=== PATIENT | female | born 1995 | race American Indian/Alaskan Native ===

== ENCOUNTER 2019-01-08 07:58 | Day surgery (SDC) | payer MEDICAID ==
[~2019-01-08 07:58] MED LIST: BLOXIVERZ ONE; DECADRON ONE; DIPRIVAN 10 MG/ML IV ONE; MARCAINE 0.5% INFILTRATI ONE; QUELICIN ONE; ROBINUL ONE; SUBLIMAZE ONE; XYLOCAINE MPF 2% ONE; ZEMURON IV ONE; ZOFRAN ONE
--- NOTE | 2019-01-08 08:33 | Anesthesia Day of Surgery ---
Anesthesia Day of Surgery - Day of Surgery Patient H&P Reviewed: Yes Patient is NPO: Yes
[2019-01-08] MEDS ORDERED: NACL BACTERIOSTATIC INFILTRATI ONE (08:37)
--- NOTE | 2019-01-08 08:38 | Anesthesia Consultation ---
Anesthesia Consult and Med Hx Date of service: 01/08/19 - Airway Anesthetic Teeth Evaluation: Good ROM Head & Neck: Adequate Mental/Hyoid Distance: Adequate Mallampati Class: Class I Intubation Access Assessment: Good - Pulmonary Exam CTA: Yes - Cardiac Exam Cardiac Exam: RRR - Pre-Operative Health Status ASA Pre-Surgery Classification: ASA1 Proposed Anesthetic Plan: General - Pulmonary Hx Smoking: No - Cardiovascular System Hx Hypertension: No - Central Nervous System Hx Neuromuscular Disorder: No Hx Psychiatric Problems: No - Gastrointestinal Hx Ulcer: No Hx Gastroesophageal Reflux Disease: No - Endocrine Hx Thyroid Disease: Yes (Partial Thyroidectomy ~7 years ago) - Other Systems Hx Alcohol Use: No Hx Substance Use: No - Additional Comments Anesthesia Medical History Comments: Young, healthy, female for Lap Tubal Ligation. Neg h/o health problems. No anesthesia complications. ASA I. Risks / Benefits of GETA discussed. Pt. consents and agrees.
--- NOTE | 2019-01-08 08:39 | Short Stay Summary ---
Short Stay Documentation Date of service: 01/08/19 Narrative H&P: Pt is a 23yo BF LMP 12/25/18 presents for permanent sterilization - History Principal diagnosis: Desires permanent sterilization H&P: obtained from office Past Medical History: No medical history Past Surgical History: thyroidectomy Social history: no significant social history, - Allergies and Medications Current Medications: Allergies No Known Allergies Allergy (Verified 01/02/19 13:50) Home Medications Medication Instructions Recorded Confirmed Last Taken Type No Known Home Medications [No 01/02/19 01/02/19 Unknown History Reported Home Medications] Active Medications Lactated Ringer's (Lactated Ringers) 1,000 mls @ 75 mls/hr IV DIRECT FERNY - Physical exam General appearance: no acute distress Integumentary: no rash HEENT: Atraumatic Lungs: Clear to auscultation Breasts: deferred Heart: Regular rate Gastrointestinal: normal Female Genitourinary: deferred Rectal Exam: deferred Extremities: no ischemia, No edema Neurological: Normal gait, Normal speech - Brief post op/procedure progress note Date of procedure: 01/08/19 Pre-op diagnosis: Desires permanent sterilization Post-op diagnosis: same Procedure: Laparoscopic bilateral tubal ligation Anesthesia: GETA Findings: A normal uterus with normal tubes and ovaries bilaterally. Surgeon: MIKE BETANCUR Estimated blood loss: minimal Pathology: none Condition: stable - Hospital course Hospital course: Unremarkable. - Disposition Condition at discharge: Good Disposition: DC-01 TO HOME OR SELFCARE - Discharge Diagnoses (1) Encounter for sterilization Status: Resolved Short Stay Discharge Plan Activity: no restrictions Diet: regular Wound: open to air, keep clean and dry Follow up with: LEYDI RAMOS [Other] - 7 Days MIKE BETANCUR MD [Staff Physician] - 14 Days Prescriptions: HYDROcodone/APAP 5-325 [[place] 5/325] 1 each PO Q6HR PRN #20 tablet PRN Reason: Pain
[2019-01-08] MEDS ORDERED: ANCEF/STERILE WATER 2 GM/20 ML 2 GM/20 ML SYRINGE IV NR (09:00)
[2019-01-08] MEDS ORDERED: LACTATED RINGERS 1,000 ML IV SCH (09:00)
[2019-01-08 09:05] LABS: Hematocrit 39.4 % (30.3-42.9); Hemoglobin 12.9 gm/dl (10.1-14.3)
[2019-01-08] MEDS ORDERED: MARCAINE 0.5% INFILTRATI ONE (09:33)
[2019-01-08] MEDS ORDERED: NACL 0.9% IR ONE (09:34)
--- NOTE | 2019-01-08 10:01 | Operative Report ---
Operative Report Operative Report: PREOPERATIVE DIAGNOSIS: Desires permanent sterilization POSTOPERATIVE DIAGNOSIS: Same OPERATIVE PROCEDURE: Laparoscopic bilateral tubal ligation. SURGEON: Alex Case MD ANESTHESIA: Gen. endotracheal intubation ANESTHESIOLOGIST: Dr. Moncada ESTIMATED BLOOD LOSS: Minimal FINDINGS: A normal uterus with normal tubes and ovaries bilaterally. COMPLICATIONS: None COUNTS: Correct x3. PROCEDURE: After the patient was correctly identified and after general anesthesia was administered, the patient was prepped and draped in usual sterile fashion and placed in dorsal lithotomy position. First, the bladder was emptied using a straight catheter. Next, a speculum was placed in the vaginal vault and the anterior lip of the cervix was grasped using a single-tooth tenaculum. The uterine manipulator was then placed and the tenaculum and speculum were removed. Attention was then turned to the abdomen where first a periumbilical incision was made using a skin knife, and the Optiview trocar was inserted under direct visualization. After an adequate amount of abdominal insufflation, visualization of the pelvic organs found the uterus to be normal, and the tubes and ovaries to be normal bilaterally. Next, the left fallopian tube was grasped using the Voyant device, and after identifying the fimbriated end of the left tube, this tube was cauterized in 3 continuous [address] along the proximal portion of the left tube. The same procedure was performed on the right fallopian tube after first identifying the fimbriated end of the right tube. This tube was also cauterized in 3 continuous places along the proximal portion of the right tube. At this point, the procedure was then considered complete. All instruments were removed from the abdomen. The abdomen was deflated and the periumbilical incision was closed using 0 Vicryl suture in a [id number] configuration on the fascia, followed by 4-0 Monocryl suture in sub-cuticular fashion on the skin. The incision was also infiltrated using 0.5% Marcaine solution. The uterine manipulator was removed. The patient tolerated the procedure well and was transferred to recovery room stable condition.
[2019-01-08] MEDS ORDERED: NORCO 5/325 PO PRN (11:24)
[2019-01-08] MEDS ORDERED: NORCO 5/325 ONE (11:29)
[2019-01-08 12:29] VITALS: BP 135/85
--- NOTE | 2019-01-08 14:00 | Post Anesthesia Evaluation ---
- Post Anesthesia Evaluation Patient Participated: Yes Airway Patent: Yes Stable Respiratory Function: Yes Nausea/Vomiting: No Temp > 96.8F: Yes Pain Manageable: Yes Adequeate Hydration: Yes Anesthesia Complications: No
== END 2019-01-08 07:59 | disposition home or self-care (01) ==
LOC: OR 07:58
PROVIDERS: ATTEND Obstetrics & Gynecology
DX: Z30.2 Encounter for sterilization (principal); E89.0 Postprocedural hypothyroidism; Z98.890 Other specified postprocedural states; Z80.8 Family history of malignant neoplasm of other organs or systems
CPT/HCPCS: 36415; 58670; 81025; 85014; 85018; A4217; J0330; J0690; J1100; J2405; J2704; J2710; J3010; J7120